=== PATIENT | male | born 1975 | race Caucasian/White ===

== ENCOUNTER 2018-08-05 18:25 | Emergency (ER) | payer OTHER, BC ==
[2018-08-05 18:43] VITALS: BP 125/87
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
== END 2018-08-05 19:41 | disposition home or self-care (01) ==
LOC: ER 18:25
DX: M25.511 Pain in right shoulder (principal); W19.XXXA Unspecified fall, initial encounter; Y93.02 Activity, running; Y92.139 Unspecified place military base as the place of occurrence of the external cause; Y99.0 Civilian activity done for income or pay; F17.200 Nicotine dependence, unspecified, uncomplicated
CPT/HCPCS: 99283